=== PATIENT | female | born 1980 | race Caucasian/White ===

== ENCOUNTER → 2017-02-10 | Outpatient (CLI) | payer OTHER ==
[~2017-02-10] MED LIST: DEPO-PROVER150 MG/ML IM; FLONASE16 G1 BOTH NARES; IBUPROFEN800 MG PO; PERCOCET 5/31 TABLET PO; XARELTO15 MG PO; XARELTO20 MG PO
== END | disposition home or self-care (01) ==
LOC: RAD 15:44
DX: M77.32 Calcaneal spur, left foot (principal); M77.31 Calcaneal spur, right foot; R93.8 Abnormal findings on diagnostic imaging of other specified body structures
CPT/HCPCS: 73630